=== PATIENT | female | born 1995 | race Caucasian/White ===

== ENCOUNTER 2018-09-04 18:06 | Emergency (ER) | payer OTHER ==
[~2018-09-04] VITALS: Ht 156.2 cm; Wt 43.6 kg
[2018-09-04 18:39] VITALS: BP 108/68
--- NOTE | 2018-09-04 21:49 | NUR ---
REEVALUATED PT. REASSESSED VITALS. VSS. PT AMBULATED TO THE RESTROOM TO GIVE U/A SPECIMEN.
--- NOTE | 2018-09-04 21:51 | NUR ---
PT AMBULATED BACK TO [facility]
--- NOTE | 2018-09-04 22:58 | NUR ---
PATIENT AMBULATED TO CHAIR A WITH STEADY GAIT
--- NOTE | 2018-09-04 23:00 | NUR ---
PT IS A 23 Y/O FEMALE WHO PRESENTS TO THE ED C/O . PT WAS AT AN [facility] AND WAS TOLD TO GO TO THE ER. PT DENIES PAIN AT THIS TIME. PT IS 14 WEEKS , LMP 04/2018. PT DENIES CP, SOB, N/V/D. PT AWAKE AND ALERT, RR EVEN/UNLABORED. PT REPOSITIONED FOR COMFORT, BED IN LOWEST POSITION. ER MD DR. IRBY NOTIFIED. WILL CONTINUE TO MONITOR. MEDHX: NONE RX: PRENATALS
[2018-09-04 23:24] LABS: BASOPHILS # (AUTO) 0.1 K/uL (0.00-0.22); BASOPHILS % (AUTO) 0.7 % (0.0-2.0); EOSINOPHILS # (AUTO) 0.1 K/uL (0-0.4); EOSINOPHILS % (AUTO) 1.7 % (0.0-4.0); HEMATOCRIT 32.9 % (36-48); HEMOGLOBIN 11.2 g/dL (12.0-16.0); LYMPHOCYTES # (AUTO) 2.3 K/uL (2.5-16.5); LYMPHOCYTES % (AUTO) 33.1 % (20.5-51.1); MEAN CORPUSCULAR HEMOGLOBIN 31 pg (27-31); MEAN CORPUSCULAR HGB CONC 34 g/dL (33-37); MEAN CORPUSCULAR VOLUME 90.2 fL (80-94); MONOCYTES # (AUTO) 0.6 K/uL (0.8-1.0); NEUTROPHILS # (AUTO) 3.9 K/uL (1.8-7.7); NEUTROPHILS % (AUTO) 55.5 % (42.2-75.2); PLATELET COUNT (AUTO) 230 K/uL (140-450); RED BLOOD CELL COUNT(AUTO) 3.65 MIL/uL (4.20-5.40); RED CELL DISTRIBUTION WIDTH 14.4 % (11.6-13.7)
[2018-09-04 23:34] LABS: APPEARANCE,URINE CLEAR (CLEAR); BILIRUBIN,URINE NEGATIVE (NEGATIVE); BLOOD, URINE NEGATIVE (NEGATIVE); COLOR,URINE YELLOW (YELLOW); LEUKOCYTE ESTERASE ,URINE TRACE (NEGATIVE); NITRITE, URINE NEGATIVE (NEGATIVE); UGLUCOSE NEGATIVE (NEGATIVE)
[2018-09-04 23:35] LABS: ANION GAP 13.2 (8-16); CARBON DIOXIDE 24.9 mmol/L (21-32); CREATININE 0.5 mg/dL (0.6-1.3); POTASSIUM 3.1 mmol/L (3.5-5.1)
[2018-09-04 23:42] LABS: ALBUMIN 3.2 g/dL (3.4-5.0); TOTAL BILIRUBIN 1.2 mg/dL (0.0-1.0)
--- NOTE | 2018-09-04 23:42 | NUR ---
PATIENT TAKEN TO US WITH TECH VIA WHEELCHAIR.
[2018-09-05 00:13] LABS: RBC,URINE 0-5 /HPF (0-5); WBC,URINE 0-5 /HPF (0-5)
[2018-09-05 01:00] VITALS: BP 119/85
--- NOTE | 2018-09-05 01:00 | NUR ---
Patient discharged with v/s stable. Written and verbal after care instructions given and explained. Patient verbalized understanding. Ambulatory with steady gait. All questions addressed prior to discharge. Advised to follow up with PMD.
== END 2018-09-05 01:00 | disposition home or self-care (01) ==
LOC: MED 18:06
DX: O36.4XX0 Maternal care for intrauterine death, not applicable or unspecified (principal); Z3A.10 10 weeks gestation of pregnancy
CPT/HCPCS: 36415; 76801; 80053; 81001; 81002; 81025; 84702; 85025; 99284